=== PATIENT | female | born 1965 | race Caucasian/White ===

== ENCOUNTER 2018-11-21 14:36 | Emergency (ER) | payer OTHER ==
[2018-11-21 15:03] VITALS: BP 147/87; PULSE 104; RESP 18; TEMP 98.5
--- NOTE | 2018-11-21 15:23 | ED ---
Upper Extremity HPI - General Chief Complaint: Extremity Injury, Upper Stated Complaint: hand injury Time Seen by Provider: 11/21/18 15:04 Source: patient, RN notes reviewed Mode of arrival: ambulatory Limitations: no limitations - History of Present Illness Initial Comments: 53-year-old female presents emergency with chief complaint of finger injury. Patient states that her daughter ran into her causing her finger bent back. Patient states it is her right hand fourth digit. Patient states it is more swollen and bruised today. Patient most the pain is between the MCP and PIP. Patient is right-hand dominant no prior fractures. - Related Data Allergies Allergy/AdvReac Type Severity Reaction Status Date / Time adhesive tape Allergy Unknown Verified 11/21/18 15:03 Review of Systems ROS Statement: Those systems with pertinent positive or pertinent negative responses have been documented in the HPI. ROS Other: All systems not noted in ROS Statement are negative. Past Medical History Past Medical History: Asthma, Hypertension Additional Past Medical History / Comment(s): adenocarcinoma History of Any Multi-Drug Resistant Organisms: None Reported Past Surgical History: No Surgical Hx Reported, Section Additional Past Surgical History / Comment(s): lung Past Psychological History: No Psychological Hx Reported Smoking Status: Never smoker Past Alcohol Use History: None Reported Past Drug Use History: None Reported General Exam Limitations: no limitations General appearance: alert, in no apparent distress Head exam: Present: atraumatic, normocephalic, normal inspection Respiratory exam: Present: normal lung sounds bilaterally. Absent: respiratory distress, wheezes, rales, rhonchi, stridor Cardiovascular Exam: Present: regular rate, normal rhythm, normal heart sounds. Absent: systolic murmur, diastolic murmur, rubs, gallop, clicks Extremities exam: Present: other (Right hand fourth digit there is pain with palpation to the proximal phalangeal region, pain at the MCP and PIP joint with decreased range of motion capillary refill less than 2 seconds) Skin exam: Present: warm, dry, intact, normal color. Absent: rash Course Vital Signs 11/21/18 14:59 Temperature 98.5 F Pulse Rate 104 H Respiratory 18 Rate Blood Pressure 147/87 O2 Sat by Pulse 98 Oximetry Medical Decision Making - Medical Decision Making 53-year-old female presents emergency from it for finger injury. X-rays were obtained no acute fracture. Patient is a finger sprain. Patient will follow-up if persistent symptoms return parameters were discussed Disposition Clinical Impression: Sprain of finger of right hand Disposition: HOME SELF-CARE Condition: Stable Instructions (If sedation given, give patient instructions): Finger Sprain (ED) Additional Instructions: Please return to the Emergency Department if symptoms worsen or any other concerns. Is patient prescribed a controlled substance at d/c from ED?: No Referrals: Nonstaff,Physician [Primary Care Provider] - 1-2 days Time of Disposition: 16:05
--- NOTE | 2018-11-21 15:52 | XR ---
EXAMINATION TYPE: XR finger RT DATE OF EXAM: 11/21/2018 COMPARISON: NONE HISTORY: Pain TECHNIQUE: Three views are submitted. FINDINGS: The osseous structures are intact. The joint spaces are preserved and there is no acute fracture or dislocation. IMPRESSION: 1. No definite acute fracture or dislocation if symptoms persist, follow-up study in 7 to 10 days wo uld be suggested
== END 2018-11-21 16:25 | disposition home or self-care (01) ==
LOC: EC 14:36
DX: S63.614A Unspecified sprain of right ring finger, initial encounter (principal); Z91.048 Other nonmedicinal substance allergy status; X50.9XXA Other and unspecified overexertion or strenuous movements or postures, initial encounter
CPT/HCPCS: 99283

== ENCOUNTER 2019-01-01 14:04 | Emergency (ER) | payer OTHER ==
[2019-01-01] MEDS ORDERED: methylPREDNISolone SOD SUCCI 125 MG/2 ML VIAL IM ONE (14:44)
--- NOTE | 2019-01-01 14:50 | ED ---
Skin/Abscess/FB HPI - General Chief complaint: Skin/Abscess/Foreign Body Stated complaint: rt hand swelling/SERAFIN Time Seen by Provider: 01/01/19 14:24 Source: patient Mode of arrival: ambulatory Limitations: no limitations - History of Present Illness Initial comments: Patient is a 53-year-old female presenting to the emergency Department with complaints of right hand swelling 24 hours. Patient states she has strong reactions to mosquito bites and thinks that is what caused the swelling. Patient states the last 24 hours her hand has become more swollen, sore, and warm. Patient states she also has a history of asthma and believes her wheezing is worse than usual. Patient states she did an at home nebulizer treatment before arrival at the ER, and feels improvement with breathing. Patient states her main concern is her right Hand. Patient Denies Any Fever, Chills, Abdominal Pain, Nausea, Vomiting. Patient Has No Other Complaints at This Time. - Related Data Previous Rx's Medication Instructions Recorded Cephalexin [Keflex] 500 mg PO Q6HR 5 Days #20 cap 01/01/19 methylPREDNISolone [Medrol Dose 4 mg PO DIRECTED #1 pack 01/01/19 Pack] Allergies Allergy/AdvReac Type Severity Reaction Status Date / Time adhesive tape Allergy Unknown Verified 01/01/19 14:18 tree nut [Nut] Allergy Dyspnea Verified 01/01/19 14:18 Review of Systems ROS Statement: Those systems with pertinent positive or pertinent negative responses have been documented in the HPI. ROS Other: All systems not noted in ROS Statement are negative. Past Medical History Past Medical History: Asthma, Hypertension Additional Past Medical History / Comment(s): adenocarcinoma History of Any Multi-Drug Resistant Organisms: None Reported Past Surgical History: No Surgical Hx Reported, Section Additional Past Surgical History / Comment(s): lung Past Psychological History: No Psychological Hx Reported Smoking Status: Never smoker Past Alcohol Use History: None Reported Past Drug Use History: None Reported General Exam - General Exam Comments Initial Comments: GENERAL: Well-appearing, well-nourished and in no acute distress. HEAD: Atraumatic, normocephalic. EYES: Pupils equal round and reactive to light, extraocular movements intact, sclera anicteric, conjunctiva are normal. ENT: TMs normal, nares patent, oropharynx clear without exudates. Moist mucous membranes. NECK: Normal range of motion, supple without lymphadenopathy or JVD. LUNGS: Breath sounds clear to auscultation bilaterally and equal. Mild scattered wheezes throughout, no rales or rhonchi. HEART: Regular rate and rhythm without murmurs, rubs or gallops. ABDOMEN: Soft, nontender, normoactive bowel sounds. No guarding, no rebound. No masses appreciated. : Deferred EXTREMITIES: Right hand has mild swelling on the dorsal aspect, pain with palpation, mild erythema from the hand to the wrist. NEUROLOGICAL: Cranial nerves II through XII grossly intact. Normal speech, normal gait. PSYCH: Normal mood, normal affect. SKIN: Warm, Dry, normal turgor. There is a small erythematous papule on the do rsal aspect of the right hand consistent with a bug bite. Limitations: no limitations Course Vital Signs 01/01/19 01/01/19 14:15 15:35 Temperature 98.6 F 98.2 F Pulse Rate 76 70 Respiratory 18 16 Rate Blood Pressure 159/91 150/77 O2 Sat by Pulse 99 98 Oximetry Medical Decision Making - Medical Decision Making Patient is a 53-year-old female with complaints of right hand swelling after bug bite. Patient states she has had similar reactions to mosquito bites in the past. Patient admits to having asthma and feels like she is wheezing a little bit more unusual since getting the mosquito bites. Patient didn't at home nebulizer treatment before arrival to the ER and reports improvement in her wheezing. She states she has no longer feeling short of breath. On exam patient's right hand on the dorsal aspect has mild edema, erythema and pain with palpation. There are no red streaks coming from the area. Patient has full range of motion of her hand and wrist. Patient has mild scattered wheezing throughout her lung santacruz. Patient denies being short of breath at this time. Patient will be started on Keflex for possible cellulitis of her right hand and given some Medrol in the ER along with a Medrol Dosepak at home. Patient is in agreement with this plan. Return parameters were discussed. Case discussed with Dr. Kramer. Disposition Clinical Impression: Cellulitis of right hand, Asthma Disposition: HOME SELF-CARE Condition: Stable Instructions (If sedation given, give patient instructions): Cellulitis (ED) Additional Instructions: Please return to the Emergency Department if symptoms worsen or any other concerns. Prescriptions: Cephalexin [Keflex] 500 mg PO Q6HR 5 Days #20 cap methylPREDNISolone [Medrol Dose Pack] 4 mg PO DIRECTED #1 pack Is patient prescribed a controlled substance at d/c from ED?: No Referrals: Nonstaff,Physician [Primary Care Provider] - 1-2 days
[2019-01-01 15:35] VITALS: BP 150/77; PULSE 70; RESP 16; TEMP 98.2
== END 2019-01-01 15:34 | disposition home or self-care (01) ==
LOC: EC 14:04
DX: J45.909 Unspecified asthma, uncomplicated (principal); L03.113 Cellulitis of right upper limb; Z85.89 Personal history of malignant neoplasm of other organs and systems; Z91.048 Other nonmedicinal substance allergy status; Z91.018 Allergy to other foods
CPT/HCPCS: 99284; 96372; J2930

== ENCOUNTER 2019-08-29 04:08 | Emergency (ER) | payer OTHER ==
[2019-08-29 04:18] VITALS: TEMP 98.1
--- NOTE | 2019-08-29 04:51 | ED ---
SOB HPI - General Chief Complaint: Shortness of Breath Stated Complaint: High BP, Shortness of Breath Time Seen by Provider: 08/29/19 04:35 Source: patient Mode of arrival: ambulatory Limitations: no limitations - History of Present Illness Initial Comments: This patient is a 54-year-old woman who presents with complaint that she is having chest tightness, dyspnea, tingling of the bilateral fingers. She states that started this morning. She had been working on a time she on the computer. When the symptoms developed they checked her blood pressure at home and it was elevated. MD Complaint: shortness of breath, chest pain Onset/Timin -: hour(s) Quality: other (Tightness) Consistency: constant Improves With: nothing Worsens With: nothing Associated Symptoms: parasthesias Treatments Prior to Arrival: none - Related Data Home Oxygen Therapy: No Previous Rx's Medication Instructions Recorded Cephalexin [Keflex] 500 mg PO Q6HR 5 Days #20 cap 01/01/19 methylPREDNISolone [Medrol Dose 4 mg PO DIRECTED #1 pack 01/01/19 Pack] Allergies Allergy/AdvReac Type Severity Reaction Status Date / Time adhesive tape Allergy Unknown Verified 08/29/19 04:18 tree nut [Nut] Allergy Dyspnea Verified 08/29/19 04:18 Review of Systems ROS Statement: Those systems with pertinent positive or pertinent negative responses have been documented in the HPI. ROS Other: All systems not noted in ROS Statement are negative. Constitutional: Denies: fever, chills Respiratory: Reports: dyspnea. Denies: cough, wheezes, hemoptysis Cardiovascular: Reports: chest pain. Denies: palpitations, orthopnea, edema, syncope Gastrointestinal: Reports: constipation. Denies: abdominal pain, vomiting, diarrhea Genitourinary: Denies: dysuria, hematuria Musculoskeletal: Denies: back pain Skin: Denies: rash Neurological: Denies: headache, weakness, numbness Psychiatric: Reports: anxiety Past Medical History Past Medical History: Asthma, Hypertension Additional Past Medical History / Comment(s): adenocarcinoma History of Any Multi-Drug Resistant Organisms: None Reported Past Surgical History: No Surgical Hx Reported, Section Additional Past Surgical History / Comment(s): left lower lobe lung removed Past Psychological History: No Psychological Hx Reported Smoking Status: Never smoker Past Alcohol Use History: None Reported Past Drug Use History: None Reported General Exam Limitations: no limitations General appearance: alert, in no apparent distress Head exam: Present: atraumatic, normocephalic Eye exam: Present: normal appearance. Absent: scleral icterus, conjunctival injection ENT exam: Present: mucous membranes dry Neck exam: Present: normal inspection Respiratory exam: Present: normal lung sounds bilaterally. Absent: respiratory distress, wheezes, rales, rhonchi, stridor Cardiovascular Exam: Present: regular rate, normal rhythm, normal heart sounds. Absent: systolic murmur, diastolic murmur, rubs, gallop GI/Abdominal exam: Present: soft. Absent: distended, tenderness, guarding, rebound, rigid Extremities exam: Present: normal inspection, normal capillary refill. Absent: pedal edema, calf tenderness Back exam: Present: normal inspection. Absent: CVA tenderness (R), CVA tenderness (L) Neurological exam: Present: alert Skin exam: Present: warm, dry, intact, normal color. Absent: rash Course Vital Signs 08/29/19 08/29/19 08/29/19 04:14 04:39 05:00 Temperature 98.1 F Pulse Rate 92 88 81 Respiratory 18 18 181 H Rate Blood Pressure 185/118 159/93 149/88 O2 Sat by Pulse 100 96 100 Oximetry 08/29/19 08/29/19 06:00 07:00 Temperature Pulse Rate 77 79 Respiratory 18 18 Rate Blood Pressure 145/91 139/83 O2 Sat by Pulse 100 100 Oximetry Medical Decision Making - Medical Decision Making Patient's 54-year-old woman with a number of symptoms, but most concerning are the chest discomfort and dyspnea. These did resolve. I did recommend admission for serial cardiac enzymes, and cardiology consultation. At this point the patient is stable she feels well and would like to have this as outpatient. I did stress that should the symptoms recur she must return immediately. She new symptoms develop she needs to return. - Lab Data Result diagrams: 08/29/19 04:50 08/29/19 04:50 Lab Results 08/29/19 08/29/19 08/29/19 Range/Units 04:50 04:50 04:50 WBC 6.9 (3.8-10.6) k/uL RBC 4.77 (3.80-5.40) m/uL Hgb 11.8 (11.4-16.0) gm/dL Hct 33.8 L (34.0-46.0) % MCV 70.9 L (80.0-100.0) fL MCH 24.8 L (25.0-35.0) pg MCHC 35.0 (31.0-37.0) g/dL RDW 18.7 H (11.5-15.5) % Plt Count 469 H (150-450) k/uL Neutrophils % 67 % Lymphocytes % 23 % Monocytes % 5 % Eosinophils % 3 % Basophils % 1 % Neutrophils # 4.6 (1.3-7.7) k/uL Lymphocytes # 1.5 (1.0-4.8) k/uL Monocytes # 0.3 (0-1.0) k/uL Eosinophils # 0.2 (0-0.7) k/uL Basophils # 0.0 (0-0.2) k/uL Hypochromasia Marked Poikilocytosis Slight Anisocytosis Slight Microcytosis Marked PT Cancelled INR Cancelled APTT 22.0 (22.0-30.0) sec D-Dimer 0.59 (<0.60) mg/L FEU Sodium 134 L (137-145) mmol/L Potassium 4.0 (3.5-5.1) mmol/L Chloride 104 (98-107) mmol/L Carbon Dioxide 16 L (22-30) mmol/L Anion Gap 14 mmol/L BUN 12 (7-17) mg/dL Creatinine 0.68 (0.52-1.04) mg/dL Est GFR (CKD-EPI)AfAm >90 (>60 ml/min/1.73 sqM) Est GFR (CKD-EPI)NonAf >90 (>60 ml/min/1.73 sqM) Glucose 127 H (74-99) mg/dL Calcium 9.3 (8.4-10.2) mg/dL Total Bilirubin 0.3 (0.2-1.3) mg/dL AST 33 (14-36) U/L ALT 18 (4-34) U/L Alkaline Phosphatase 100 (38-126) U/L Troponin I (0.000-0.034) ng/mL NT-Pro-B Natriuret Pep pg/mL Total Protein 8.1 (6.3-8.2) g/dL Albumin 4.4 (3.5-5.0) g/dL Amylase 67 (30-110) U/L Lipase 199 (23-300) U/L TSH 29.000 H (0.465-4.680) mIU/L Free T4 0.77 L (0.78-2.19) ng/dL Urine Color Urine Appearance (Clear) Urine pH (5.0-8.0) Ur Specific [place] (1.001-1.035) Urine Protein (Negative) Urine Glucose (UA) (Negative) Urine Ketones (Negative) Urine Blood (Negative) Urine Nitrite (Negative) Urine Bilirubin (Negative) Urine Urobilinogen (<2.0) mg/dL Ur Leukocyte Esterase (Negative) Urine RBC (0-5) /hpf Urine WBC (0-5) /hpf Ur Squamous Epith Cells (0-4) /hpf Urine Bacteria (None) /hpf Hyaline Casts (0-2) /lpf Urine Mucus (None) /hpf 08/29/19 08/29/19 08/29/19 Range/Units 04:50 04:50 04:50 WBC (3.8-10.6) k/uL RBC (3.80-5.40) m/uL Hgb (11.4-16.0) gm/dL Hct (34.0-46.0) % MCV (80.0-100.0) fL MCH (25.0-35.0) pg MCHC (31.0-37.0) g/dL RDW (11.5-15.5) % Plt Count (150-450) k/uL Neutrophils % % Lymphocytes % % Monocytes % % Eosinophils % % Basophils % % Neutrophils # (1.3-7.7) k/uL Lymphocytes # (1.0-4.8) k/uL Monocytes # (0-1.0) k/uL Eosinophils # (0-0.7) k/uL Basophils # (0-0.2) k/uL Hypochromasia Poikilocytosis Anisocytosis Microcytosis PT INR APTT (22.0-30.0) sec D-Dimer (<0.60) mg/L FEU Sodium (137-145) mmol/L Potassium (3.5-5.1) mmol/L Chloride (98-107) mmol/L Carbon Dioxide (22-30) mmol/L Anion Gap mmol/L BUN (7-17) mg/dL Creatinine (0.52-1.04) mg/dL Est GFR (CKD-EPI)AfAm (>60 ml/min/1.73 sqM) Est GFR (CKD-EPI)NonAf (>60 ml/min/1.73 sqM) Glucose (74-99) mg/dL Calcium (8.4-10.2) mg/dL Total Bilirubin (0.2-1.3) mg/dL AST (14-36) U/L ALT (4-34) U/L Alkaline Phosphatase (38-126) U/L Troponin I <0.012 (0.000-0.034) ng/mL NT-Pro-B Natriuret Pep 55 pg/mL Total Protein (6.3-8.2) g/dL Albumin (3.5-5.0) g/dL Amylase (30-110) U/L Lipase (23-300) U/L TSH (0.465-4.680) mIU/L Free T4 (0.78-2.19) ng/dL Urine Color Colorless Urine Appearance Cloudy H (Clear) Urine pH 6.5 (5.0-8.0) Ur Specific [place] 1.005 (1.001-1.035) Urine Protein Trace H (Negative) Urine Glucose (UA) Negative (Negative) Urine Ketones Negative (Negative) Urine Blood Negative (Negative) Urine Nitrite Negative (Negative) Urine Bilirubin Negative (Negative) Urine Urobilinogen <2.0 (<2.0) mg/dL Ur Leukocyte Esterase Small H (Negative) Urine RBC 4 (0-5) /hpf Urine WBC 3 (0-5) /hpf Ur Squamous Epith Cells 4 (0-4) /hpf Urine Bacteria Rare H (None) /hpf Hyaline Casts 1 (0-2) /lpf Urine Mucus Rare H (None) /hpf - EKG Data -: EKG Interpreted by Me EKG shows normal: sinus rhythm, axis (Normal), intervals (Normal), QRS complexes (Incomplete right bundle branch block.) Rate: normal (Rate 80 bpm) Interpretation: nonspecific ST-T wave changes, LVH (Voltage criteria) Disposition Clinical Impression: Chest pain, Hypertension, Hypothyroid Disposition: HOME SELF-CARE Condition: Good Instructions (If sedation given, give patient instructions): Chest Pain (ED) Is patient prescribed a controlled substance at d/c from ED?: No Referrals: Kevin Vicente MD [Primary Care Provider] - 1-2 days Robb Jeter MD [STAFF PHYSICIAN] - 1-2 days
[2019-08-29 05:11] LABS: Anisocytosis Slight; Basophils % (A) 1 %; Eosinophils # (A) 0.2 k/uL (0-0.7); Eosinophils % (A) 3 %; HCT 33.8 % (34.0-46.0); HGB 11.8 gm/dL (11.4-16.0); Hypochromasia Marked; Lymphocytes # (A) 1.5 k/uL (1.0-4.8); Lymphocytes % (A) 23 %; MCH 24.8 pg (25.0-35.0); MCV 70.9 fL (80.0-100.0); Microcytosis Marked; Monocytes # (A) 0.3 k/uL (0-1.0); Monocytes % (A) 5 %; Neutrophils # (A) 4.6 k/uL (1.3-7.7); Neutrophils % (A) 67 %; Platelet Count 469 k/uL (150-450); Poikilocytosis Slight; RBC 4.77 m/uL (3.80-5.40); RDW 18.7 % (11.5-15.5); WBC 6.9 k/uL (3.8-10.6)
[2019-08-29 05:16] LABS: Appearance,Urine Cloudy (Clear); Bacteria,Urine Rare /hpf; Bilirubin,Urine Negative (Negative); Blood,Urine Negative (Negative); Color,Urine Colorless; Glucose,Urine (UA) Negative (Negative); Hyaline Casts,Urine 1 /lpf (0-2); Ketones,Urine Negative (Negative); Leukocyte Esterase,Urine Small (Negative); Mucus,Urine Rare /hpf; Nitrite,Urine Negative (Negative); PH, Urine 6.5 (5.0-8.0); Protein,Urine Trace (Negative); RBC,Urine 4 /hpf (0-5); Specific Gravity,Urine 1.005 (1.001-1.035); Squamous Epithelial Cell,Urine 4 /hpf (0-4); Urobilinogen,Urine <2.0 mg/dL (<2.0); WBC,Urine 3 /hpf (0-5)
[2019-08-29 05:23] LABS: ALT 18 U/L (4-34); AST 33 U/L (14-36); African American GFR (CKD) >90 (>60 ml/min/1.73 sqM); Albumin 4.4 g/dL (3.5-5.0); Alkaline Phosphatase 100 U/L (38-126); Anion Gap 14 mmol/L; Blood Urea Nitrogen 12 mg/dL (7-17); Calcium 9.3 mg/dL (8.4-10.2); Carbon Dioxide 16 mmol/L (22-30); Chloride 104 mmol/L (98-107); Glucose 127 mg/dL (74-99); Non-African American GFR(CKD) >90 (>60 ml/min/1.73 sqM); Sodium 134 mmol/L (137-145); Total Bilirubin 0.3 mg/dL (0.2-1.3); Total Protein 8.1 g/dL (6.3-8.2)
--- NOTE | 2019-08-29 05:43 | XR ---
EXAM: XR Chest, 2 Views CLINICAL HISTORY: ITS.REASON XR Reason: difficulty breathing TECHNIQUE: Frontal and lateral views of the chest. COMPARISON: No relevant prior studies available. FINDINGS: Lungs: Slight prominence of the lung markings, nonspecific. Pleural space: Unremarkable. No pneumothorax. Heart: Unremarkable. No cardiomegaly. Mediastinum: Unremarkable. Bones/joints: Degenerative changes in the spine. Tubes, lines and devices: Overlying chest leads obscure portion of the chest. IMPRESSION: 1. Slight prominent lung markings, nonspecific. 2. Follow-up could be obtained to exclude early congestion. 3. No dense consolidation
[2019-08-29 05:49] LABS: D-Dimer 0.59 mg/L FEU (<0.60)
[2019-08-29 06:30] LABS: Amylase 67 U/L (30-110)
[2019-08-29 06:48] LABS: T4, Free (Free Thyroxine) 0.77 ng/dL (0.78-2.19)
[2019-08-29 07:10] VITALS: RESP 18
[2019-08-29 07:50] VITALS: BP 134/90; PULSE 88
== END 2019-08-29 07:38 | disposition home or self-care (01) ==
LOC: EC 04:08
DX: R07.9 Chest pain, unspecified (principal); I10 Essential (primary) hypertension; E03.9 Hypothyroidism, unspecified; R06.02 Shortness of breath; Z79.52 Long term (current) use of systemic steroids; Z91.048 Other nonmedicinal substance allergy status; Z91.010 Allergy to peanuts; Z90.2 Acquired absence of lung [part of]
CPT/HCPCS: 36415; 71046; 80053; 81001; 82150; 83690; 83880; 84439; 84443; 84484; 85025; 85379; 85730; 99285

== ENCOUNTER → 2019-12-02 | Outpatient (CLI) | payer OTHER ==
--- NOTE | 2019-12-02 08:12 | CT ---
EXAMINATION TYPE: CT chest wo con DATE OF EXAM: 12/02/2019 COMPARISON: Chest x-ray August 29, 2019. No prior CT or PET CT at this institution. HISTORY: LEFT LOWER LOBE LUNG CANCER, SEVERE PERSISTENT ASTHMA, UNCOMPLICATED CT DLP: 344.6 mGycm. Automated Exposure Control for Dose Reduction was Utilized. TECHNIQUE: CT scan of the thorax is performed without IV contrast. FINDINGS: LUNGS: Left-sided volume loss is redemonstrated as there are suspected surgical changes left hilar le criselda. No suspicious recurrent new greater than 4 mm noncalcified nodule or mass. No pleural effusion o r pneumothorax seen. No suspicious focal consolidation. MEDIASTINUM: Lack of IV contrast is noted to limit evaluation for mediastinal and especially hilar ad enopathy. There are no definitive greater than 1 cm hilar or mediastinal lymph nodes. No cardiomega ly or pericardial effusion is seen. OTHER: Hepatomegaly with fatty infiltration of liver. S-shaped scoliosis in the spine. IMPRESSION: Postsurgical changes to the left lung. No suspicious new mass or adenopathy. No suspiciou s acute pulmonary process.
== END | disposition home or self-care (01) ==
LOC: RADCTMAIN 07:37
PROVIDERS: ATTEND Internal Medicine Pulmonary Disease
DX: Z98.890 Other specified postprocedural states (principal); J45.50 Severe persistent asthma, uncomplicated; C34.90 Malignant neoplasm of unspecified part of unspecified bronchus or lung
CPT/HCPCS: 71250